=== PATIENT | female | born 1960 | race Caucasian/White ===

== ENCOUNTER 2017-01-11 10:17 | Outpatient (CLI) ==
[2016-05-03 09:12] VITALS: BMI 37.8
[2017-01-11 10:33] LABS: BASOPHILS # (AUTO) 0.1 K/uL (0-0.2); EOSINOPHILS # (AUTO) 0.2 K/ul (0.0-0.7); EOSINOPHILS % (AUTO) 2.7 % (0.0-7.0); HEMATOCRIT 45.5 % (37.0-47.0); HEMOGLOBIN 15.2 g/dl (12.0-16.0); IMMATURE GRANULOCYTE % (AUTO) 0.4 % (0.0-5.0); LYMPHOCYTES # (AUTO) 3.2 K/uL (0.60-3.4); LYMPHOCYTES % (AUTO) 36.1 (10.0-50.0); MEAN CORPUSCULAR HEMOGLOBIN 31.1 pg (27.0-31.0); MEAN CORPUSCULAR HGB CONC 33.4 (31.8-35.4); MONOCYTES # (AUTO) 0.7 K/uL (0.4-2.0); MONOCYTES % (AUTO) 7.9 (0-10); NEUTROPHILS # (AUTO) 4.6 K/ul (2.0-6.9); NEUTROPHILS % (AUTO) 51.9; PLATELET COUNT 412 10^3/uL (140-440); RED BLOOD COUNT 4.89 10^6/ul (4.20-5.40); WHITE BLOOD COUNT 8.94 K/ul (4.6-10.2)
[2017-01-11 10:58] LABS: ALBUMIN 3.6 g/dL (3.4-5.0); ALBUMIN/GLOBULIN RATIO 0.82; ANION GAP 13.8; BILIRUBIN,TOTAL 0.4 mg/dL (0.00-1.20); BUN/CREATININE RATIO 16.66; CALCIUM 9.9 mg/dL (8.2-10.2); CHOL/HDL RATIO 6.3 (4.5-5.5); CREATININE 0.9 mg/dL (0.60-1.30); POTASSIUM 3.8 mmol/L (3.5-5.10)
== END 2017-01-11 10:18 | disposition home or self-care (01) ==
LOC: LAB 10:17
PROVIDERS: ATTEND Physician Assistant
DX: E11.9 Type 2 diabetes mellitus without complications (principal)
CPT/HCPCS: 36415; 80053; 80061; 83036; 85025

== ENCOUNTER 2017-02-06 13:00 | Outpatient (RCR) ==
[2016-05-03 09:12] VITALS: BMI 37.8
--- NOTE | 2017-01-15 09:31 | RS.OPPTEV2 ---
Date of Note: 01/11/17 Visit #: 1 Date of Evaluation: 01/11/17 Surgery Performed?: No Procedure Performed: Right Total Knee Replacement Date of Procedure: 12/20/16 Treatment Diagnosis: Right knee pain, Right knee stiffness, gait abnormality History of Condition/Mechanism of Injury:: Patient reports previous surgery to the right knee to repair meniscus and tighten the MCL. Reports continued joint pain and arthritis led to a TKA. Prior Level of Function.....Patient was independent with: ADL's, Self Care, Work /Vocation, Caregiving, Ambulation/Mobility, Community Integration/Access Functional Limitations: Sleep, Self Care, ADL's, Reaching, Pushing, Pulling, Lifting, Carrying, Sitting, Standing, Bending, Squatting, Ambulation, Community Access/Integration Current Subjective/complaints:: Patient reports constant dull, achy pain in the right knee. States she has been using a cane for several days. Reports she just finished receiving therapy for Home Health earlier this week. Reports having 85 degrees flexion on last measurement with the Home Health Therapist. States she is performing her HEP three times a day. She is sleeping in a recliner, but trying to transition back to bed. Reports having a few steps to get into her home, no stairs inside the home. Reports tenderness along the lower leg. She is using ice on the knee at home. States she alternates Advil with her pain medication. Treatment Side (optional): Right Medical History Medical History: Diabetes, Arthritis (knees) Smoking Status: Former smoker Hx Home Medications: Metformin,hydrocodone,Flexeril Patient's Goals: Her goal is to return to her previous level of function. Pain Assessment - Pain Description Pain Location: right knee Pain Description: Dull, Aching Current Pain Intensity: 2/10 Worst Pain Intensity: not rated Functional Outcome Measure LE Functional Scale: 23 (23/80=71.25% impairment) - G Codes & Severity Modifier G Codes & Modifier: NA Source of G Code score: NA Observation - Observation Inspection: Patient presents to department with a straight cane. Right knee presents with a few steri-strips in place over the incision. Incision is closed and no drainage is noted. Demonstrates scabbed areas throughout the incision. Knee joint exhibits swelling, lower leg at ankle and foot exhibit minimal swelling. No redness noted. Gait - Gait Pattern Gait Comments: Patient ambulates with straight cane in the left hand with decreased stance on the right LE. Demonstrates good heel strike. Exhibits minimal right hip and knee flexion on during swing phase. - Right Knee ROM Right Knee Extension: -3 degrees from full extension Right Knee Flexion: 80 (degrees AROM) Knee ROM Limitations: Soft Tissue Tightness, Pain - Right Knee Strength Right Knee Extension: 4 Good Right Knee Flexion: 4 Good Palpation Comments:: Patient reports tenderness with palpation to the anterior aspect of the franco, just above the ankle. Sensation - Sensation Comments: Intact to light touch other than at the lateral side of the incision. Interventions - Exercise/Activities/Manual Therapy Exercises/Activities: Reviewed exercises that patient is performing from Home Health. Recommended she try standing knee flexion, and advised to continue icing the knee. Manual Therapy: NA HOME EXERCISE PROGRAM: basic TKA protocol from Home Health, standing knee flexion - Charges Total Direct Minutes: 48 mins Total Treatment Time: 48 mins Procedures billed for this date of service:: OLIVER Low Assessment Assessment: Patient presents three weeks s/p right TKA. She reports knee pain and limited motion. She is limited in all self care, ADL's, and ambulation due to proximity of surgery and limtations. She demonstrates good potential to benefit from exercises to regain functional right knee AROM and strength to help her return to her previous level of function. Patient Education: Education of diagnosis, Body/Joint mechanics, Home Exercise Program, Home Safety, Activity Modification, Education of Plan of Care Rehab Potential: Good Short Term Goals Goal #1: Patient independent in basic HEP. Goal to be met by: 01/26/17 Goal #2: Right knee flexion to 105 degrees. Goal to be met by: 01/26/17 Goal #3: Full right knee extension. Goal to be met by: 01/26/17 Goal #4: Right quad strength 4+/5. Goal to be met by: 01/26/17 Family Practice Doctor Goals Goal #1: Pt knows HEP and to cont. ex's to maintain functional level at D/C. Goal to be met by: 03/03/17 Goal #2: Score on LE functional scale improved to 60/80. Goal to be met by: 03/03/17 Goal #3: Pt able to amb. w/o assist. device community distances with min. gait dev. Goal to be met by: 03/03/17 Goal #4: Pt able to perform all selfcare and ADL's without difficulty. Goal to be met by: 03/03/17 Plan - Treatment to be Provided Procedures: Therapeutic Exercises, Therapeutic Activity, Manual Therapy Modalities: Electrical Stimulation, Cryotherapy, Hot Packs (prior to exercise if indicated) - Treatment Plan Frequency: 3 X week Duration: 6 weeks ORDER # VISITS AND/OR THROUGH DATE: 03/03/17 - Treatment Code (1) Knee pain Qualifiers: Laterality: right Chronicity: acute Qualified Description: Acute pain of right knee Qualifier Code(s): (M25.561) Pain in right knee (2) Knee stiffness Qualifiers: Laterality: right Qualified Description: Knee stiffness, right Qualifier Code(s): (M25.661) Stiffness of right knee, not elsewhere classified (3) Aftercare following joint replacement surgery Qualifiers: Joint replacement surgery site: knee Laterality: right Qualified Description: Aftercare following right knee joint replacement surgery Qualifier Code(s): (Z47.1) Aftercare following joint replacement surgery, ( Z96.651) Presence of right artificial knee joint
--- NOTE | 2017-01-15 14:44 | RS.OPPTDN ---
Subjective Date of Note: 01/15/17 Visit #: 2 Date of Evaluation: 01/11/17 Treatment Diagnosis: Right knee pain, Right knee stiffness, gait abnormality Current Subjective/complaints:: Patient reports she was able to sleep in her bed for the first time yesterday and drove today to therapy. She was not able to take a pain pill though, so she was anxious about therapy. C/c stiffness this morning. Pain Assessment - Pain Description Pain Location: right knee Pain Description: Dull, Aching Pain Description: stiff Current Pain Intensity: did not rate - Treatment Modality: Electrical Stim Unattended Parameters/Method Applied: hivolt 4 small pads cross current R knee x 15 mins @ 140 pk volts AFTER therex Patient Position: Supine - Heat/Cryotherapy Treatment: Cryotherapy Interventions - Exercise/Activities/Manual Therapy Exercises/Activities: Patient received PROM with gentle stretching for R knee flex/ext and hamstring/heel cords. Patellar mobs. Patient performs: QS, SAQ 1 #, SLR (AAROM), Hip ABD/ADD (AAROM), heel slides, AP, DF with red tband, Pillow squeezes, all 2/10 (2nd set of SAQ no weight). LAQ. Ended with further ROM and reviewed HEP. Encouraged HEP and ice. Total minutes of Exercise: 32 Manual Therapy: NA HOME EXERCISE PROGRAM: basic TKA protocol from Home Health, standing knee flexion - Charges Total Direct Minutes: 32 Total Treatment Time: 47 Procedures billed for this date of service:: cp, estim (un), ex2 Assessment: Patient presents without pain meds due to driving today. She ambulates with SC. She is able to now return to sleeping in her bed instead of recliner/couch. She is consistent with performing HEP and demo 90 degrees flexion with 3-4 degrees limitation in extension. Patient Education: Education of diagnosis, Body/Joint mechanics, Home Exercise Program, Home Safety, Activity Modification, Education of Plan of Care Patient demonstrates compliance with HEP?: Yes Short Term Goals Goal #1: Patient independent in basic HEP. Goal to be met by: 01/26/17 Progress towards Goal:: Progressing Goal #2: Right knee flexion to 105 degrees. Goal to be met by: 01/26/17 Progress towards Goal:: Progressing Goal #3: Full right knee extension. Goal to be met by: 01/26/17 Goal #4: Right quad strength 4+/5. Goal to be met by: 01/26/17 Penitentiary Goals Goal #1: Pt knows HEP and to cont. ex's to maintain functional level at D/C. Goal to be met by: 03/03/17 Goal #2: Score on LE functional scale improved to 60/80. Goal to be met by: 03/03/17 Goal #3: Pt able to amb. w/o assist. device community distances with min. gait dev. Goal to be met by: 03/03/17 Goal #4: Pt able to perform all selfcare and ADL's without difficulty. Goal to be met by: 03/03/17 Plan PLAN OF CARE EXPIRES ON:: 03/03/17 ORDER # VISITS AND/OR THROUGH DATE: 03/03/17 PLAN: Progress Exercises
--- NOTE | 2017-01-17 15:51 | RS.OPPTDN ---
Subjective Date of Note: 01/17/17 Visit #: 3 Date of Evaluation: 01/11/17 Treatment Diagnosis: Right knee pain, Right knee stiffness, gait abnormality Current Subjective/complaints:: Patient says she felt better after Sunday's session, but was sore yesterday to the inside of the R knee. Patient says she did take a pain pill an hour before PT appt. Patient says she feels more motion after last session. Pain Assessment - Pain Description Pain Location: right knee Pain Description: Dull, Aching Pain Description: stiff Current Pain Intensity: did not rate - Treatment Modality: Electrical Stim Unattended Parameters/Method Applied: 4 large pads hivolt x 15 mins @ 195 pk volts to R knee AFTER therex Patient Position: Supine - Heat/Cryotherapy Treatment: Cryotherapy Interventions - Exercise/Activities/Manual Therapy Exercises/Activities: Patient received PROM with gentle stretching for R knee flex/ext and hamstring/heel cords. Patellar mobs. Patient performs: QS, SAQ ( no weight today), SLR (AAROM), Hip ABD/ADD (AAROM), heel slides, AP, DF with red tband, Pillow squeezes, all 2/10 (2nd set of SAQ no weight). LAQ. Standing : ham curls. Ended with further ROM and reviewed HEP. Encouraged HEP and ice. Total minutes of Exercise: 33 Manual Therapy: NA HOME EXERCISE PROGRAM: basic TKA protocol from Home Health, standing knee flexion - Charges Total Direct Minutes: 33 Total Treatment Time: 48 Procedures billed for this date of service:: cp, estim (un), ex2 Assessment: Patient with increased soreness today and shaky with most passive motion and some activities actively. She had taken pain meds prior to PT and did show improved knee flexion by ~2-3 degrees from Sunday. She verbally admitted decreased pain and improved ambulation after modalities today. Patient Education: Education of diagnosis, Body/Joint mechanics, Home Exercise Program, Home Safety, Activity Modification, Education of Plan of Care Patient demonstrates compliance with HEP?: Yes Short Term Goals Goal #1: Patient independent in basic HEP. Goal to be met by: 01/26/17 Progress towards Goal:: Progressing Goal #2: Right knee flexion to 105 degrees. Goal to be met by: 01/26/17 Progress towards Goal:: Progressing Goal #3: Full right knee extension. Goal to be met by: 01/26/17 Goal #4: Right quad strength 4+/5. Goal to be met by: 01/26/17 [employer] Tender Goals Goal #1: Pt knows HEP and to cont. ex's to maintain functional level at D/C. Goal to be met by: 03/03/17 Goal #2: Score on LE functional scale improved to 60/80. Goal to be met by: 03/03/17 Goal #3: Pt able to amb. w/o assist. device community distances with min. gait dev. Goal to be met by: 03/03/17 Goal #4: Pt able to perform all selfcare and ADL's without difficulty. Goal to be met by: 03/03/17 Plan PLAN OF CARE EXPIRES ON:: 03/03/17 ORDER # VISITS AND/OR THROUGH DATE: 03/03/17 PLAN: Progress Exercises
--- NOTE | 2017-01-19 15:26 | RS.OPPTDN ---
Subjective Date of Note: 01/19/17 Visit #: 4 Date of Evaluation: 01/11/17 Treatment Diagnosis: Right knee pain, Right knee stiffness, gait abnormality Current Subjective/complaints:: Patient says she feels treatment is helping her gain motion, but is very sore today. She believes it is weather involved plus exercises in PT. She says she now has sensation at the lateral portion of the R knee in which she has not had feeling since surgery. She has had pain meds prior to appt today and states she has now been able to sleep 4 nights in a row in her bed. Pain Assessment - Pain Description Pain Location: right knee Pain Description: Dull, Aching Pain Description: stiff Current Pain Intensity: elevated - Heat/Cryotherapy Treatment: Hot Pack (20 mins to the R knee in supine prior to therex) Interventions - Exercise/Activities/Manual Therapy Exercises/Activities: Patient received PROM with gentle stretching for R knee flex/ext and hamstring/heel cords. Patellar mobs. Patient performs: QS, SAQ ( no weight today), SLR (AAROM), Hip ABD/ADD (AAROM), heel slides, AP, DF with red tband, Pillow squeezes, all 2/10 (2nd set of SAQ no weight). LAQ. Standing : ham curls. Total minutes of Exercise: 35 Manual Therapy: NA HOME EXERCISE PROGRAM: basic TKA protocol from Home Health, standing knee flexion - Objective Findings Observations,measurements,etc.: 0 (with QS) to 86 degrees active, 93 degrees passive (AFTER therex in supine) - Charges Total Direct Minutes: 35 Total Treatment Time: 55 Procedures billed for this date of service:: hp, ex2 Assessment: Increased knee flexion today with heat prior. Decreased swelling to the lateral R knee with improved sensation as well. Patient Education: Education of diagnosis, Body/Joint mechanics, Home Exercise Program, Home Safety, Activity Modification, Education of Plan of Care Patient demonstrates compliance with HEP?: Yes Short Term Goals Goal #1: Patient independent in basic HEP. Goal to be met by: 01/26/17 Progress towards Goal:: Progressing Goal #2: Right knee flexion to 105 degrees. Goal to be met by: 01/26/17 Progress towards Goal:: Progressing Goal #3: Full right knee extension. Goal to be met by: 01/26/17 Progress towards Goal:: Progressing Goal #4: Right quad strength 4+/5. Goal to be met by: 01/26/17 Equipment Maintenance Technician Goals Goal #1: Pt knows HEP and to cont. ex's to maintain functional level at D/C. Goal to be met by: 03/03/17 Goal #2: Score on LE functional scale improved to 60/80. Goal to be met by: 03/03/17 Goal #3: Pt able to amb. w/o assist. device community distances with min. gait dev. Goal to be met by: 03/03/17 Goal #4: Pt able to perform all selfcare and ADL's without difficulty. Goal to be met by: 03/03/17 Plan PLAN OF CARE EXPIRES ON:: 03/03/17 ORDER # VISITS AND/OR THROUGH DATE: 03/03/17 PLAN: Progress Exercises
--- NOTE | 2017-01-22 15:06 | RS.OPPTDN ---
Subjective Date of Note: 01/22/17 Visit #: 5 Date of Evaluation: 01/11/17 Treatment Diagnosis: Right knee pain, Right knee stiffness, gait abnormality Current Subjective/complaints:: Patient says she hasn't felt good all weekend. Reports feeling increased pain to her knee, but also pain throughout her body and increased sensitivity in arms and legs. She says she feels ice worked better for her and has been using ice at home a lot. Pain Assessment - Pain Description Pain Location: right knee, generally throughout body Pain Description: Dull, Aching Pain Description: stiff Current Pain Intensity: elevated Interventions - Exercise/Activities/Manual Therapy Exercises/Activities: Patient received PROM with gentle stretching for R knee flex/ext and hamstring/heel cords. Patellar mobs. Patient performs: QS, SAQ ( no weight today), SLR (AAROM), Hip ABD/ADD (AAROM), heel slides, AP, DF with red tband, Pillow squeezes, all 2/10. Ended with LAQ and further stretching and patellar mobs. Total minutes of Exercise: 38 Manual Therapy: NA HOME EXERCISE PROGRAM: basic TKA protocol from [facility], standing knee flexion - Charges Total Direct Minutes: 38 Total Treatment Time: 38 Procedures billed for this date of service:: ex3 Assessment: Patient has felt generally bad for the past few days. No sign of infection or blood clot observed today. She kelsea flex to ~94 degrees today and 0 ext. She is quite shaky laying down and sitting with conversation. Patient Education: Education of diagnosis, Body/Joint mechanics, Home Exercise Program, Home Safety, Activity Modification, Education of Plan of Care Patient demonstrates compliance with HEP?: Yes Short Term Goals Goal #1: Patient independent in basic HEP. Goal to be met by: 01/26/17 Progress towards Goal:: Progressing Goal #2: Right knee flexion to 105 degrees. Goal to be met by: 01/26/17 Progress towards Goal:: Progressing Goal #3: Full right knee extension. Goal to be met by: 01/26/17 Progress towards Goal:: Progressing Goal #4: Right quad strength 4+/5. Goal to be met by: 01/26/17 Shelter Goals Goal #1: Pt knows HEP and to cont. ex's to maintain functional level at D/C. Goal to be met by: 03/03/17 Goal #2: Score on LE functional scale improved to 60/80. Goal to be met by: 03/03/17 Goal #3: Pt able to amb. w/o assist. device community distances with min. gait dev. Goal to be met by: 03/03/17 Goal #4: Pt able to perform all selfcare and ADL's without difficulty. Goal to be met by: 03/03/17 Plan PLAN OF CARE EXPIRES ON:: 03/03/17 ORDER # VISITS AND/OR THROUGH DATE: 03/03/17 PLAN: Progress Exercises
--- NOTE | 2017-01-24 15:44 | RS.OPPTDN ---
Subjective Date of Note: 01/24/17 Visit #: 6 Date of Evaluation: 01/11/17 Treatment Diagnosis: Right knee pain, Right knee stiffness, gait abnormality Current Subjective/complaints:: Patient says she did not take a pain pill today and feels like her knee is getting more flexible. She says that she wanted to take a pain pill, but was trying to rely on them less. Pain Assessment - Pain Description Pain Location: right knee, generally throughout body Pain Description: Dull, Aching Pain Description: stiff Current Pain Intensity: elevated Interventions - Exercise/Activities/Manual Therapy Exercises/Activities: Patient received PROM with stretching for R knee flex/ext and hamstring/heel cords. Patellar mobs. Grades I-III joint mobs for improved flexion. Patient performs: QS, SAQ, SLR (Independently), Hip ABD/ADD (AAROM), heel slides, AP, DF with red tband, Pillow squeezes, all 2/10. Ended with LAQ with 1# and further stretching into flexion at EOB. Standing: hip flexion and ham curls. Initiated stationary bike x 5 mins for/retro (able to perform full revolutions backwards). Total minutes of Exercise: 38 Manual Therapy: NA HOME EXERCISE PROGRAM: basic TKA protocol from Home Health, standing knee flexion - Charges Total Direct Minutes: 38 Total Treatment Time: 38 Procedures billed for this date of service:: ex3 Assessment: Patient has demo improved flexibility with joint mobs today and shows increased flexion. She is trying to wean from her pain meds, but told her to use if needed and continue to ice. She is walking independently at home. Improved kelsea to all therex today. Patient Education: Education of diagnosis, Body/Joint mechanics, Home Exercise Program, Home Safety, Activity Modification, Education of Plan of Care Patient demonstrates compliance with HEP?: Yes Short Term Goals Goal #1: Patient independent in basic HEP. Goal to be met by: 01/26/17 Progress towards Goal:: Progressing Goal #2: Right knee flexion to 105 degrees. Goal to be met by: 01/26/17 Progress towards Goal:: Progressing Goal #3: Full right knee extension. Goal to be met by: 01/26/17 Progress towards Goal:: Progressing Goal #4: Right quad strength 4+/5. Goal to be met by: 01/26/17 Metal Furniture Glazier Goals Goal #1: Pt knows HEP and to cont. ex's to maintain functional level at D/C. Goal to be met by: 03/03/17 Goal #2: Score on LE functional scale improved to 60/80. Goal to be met by: 03/03/17 Goal #3: Pt able to amb. w/o assist. device community distances with min. gait dev. Goal to be met by: 03/03/17 Goal #4: Pt able to perform all selfcare and ADL's without difficulty. Goal to be met by: 03/03/17 Plan PLAN OF CARE EXPIRES ON:: 03/03/17 ORDER # VISITS AND/OR THROUGH DATE: 03/03/17 PLAN: Progress Exercises
--- NOTE | 2017-01-26 12:08 | RS.OPPTDN ---
Subjective Date of Note: 01/26/17 Visit #: 7 Date of Evaluation: 01/11/17 Treatment Diagnosis: Right knee pain, Right knee stiffness, gait abnormality Current Subjective/complaints:: Patient c/o increased ache/tightness today. She says she feels awful all over. Reports she has been icing even more due to the pain. She is relying on her cane less often and says she doesn't feel like she needs it anymore, but she is going to keep it when away from home. Pain Assessment - Pain Description Pain Location: right knee, generally throughout body Pain Description: Tightness, Dull, Aching Pain Description: stiff Current Pain Intensity: elevated Interventions - Exercise/Activities/Manual Therapy Exercises/Activities: Patient received PROM with stretching for R knee flex/ext and hamstring/heel cords. Patellar mobs. Grades I-III joint mobs for improved flexion. Patient performs: QS, SAQ 1 1/2#, SLR (Independently), Hip ABD/ADD ( AAROM), heel slides, AP, DF with red tband, Pillow squeezes, all /10. Ended with LAQ with 1# and further stretching into flexion at EOB. Measurements taken. Continued with stationary bike for/retro full revolutions x 6 mins Total minutes of Exercise: 43 Manual Therapy: NA HOME EXERCISE PROGRAM: basic TKA protocol from Home Health, standing knee flexion - Objective Findings Observations,measurements,etc.: Flexion with hip @ 90 degrees actively to 99 degrees - Charges Total Direct Minutes: 43 Total Treatment Time: 43 Procedures billed for this date of service:: ex3 Assessment: Patient experiencing more ache and tightness today for unknown reasons. She is hurting throughout the body and feels it is weather related. She has soreness with QS, joint mobs, and heel slides today. The exercises that usually reduce pain, are causing discomfort today. She was, however, able to perform full revolutions for and retro today. Improved flexion by ~3 degrees. Patient Education: Education of diagnosis, Body/Joint mechanics, Home Exercise Program, Home Safety, Activity Modification, Education of Plan of Care Patient demonstrates compliance with HEP?: Yes Short Term Goals Goal #1: Patient independent in basic HEP. Goal to be met by: 01/26/17 Progress towards Goal:: Progressing Goal #2: Right knee flexion to 105 degrees. Goal to be met by: 01/26/17 Progress towards Goal:: Progressing Goal #3: Full right knee extension. Goal to be met by: 01/26/17 Progress towards Goal:: Progressing Goal #4: Right quad strength 4+/5. Goal to be met by: 01/26/17 Jail Goals Goal #1: Pt knows HEP and to cont. ex's to maintain functional level at D/C. Goal to be met by: 03/03/17 Goal #2: Score on LE functional scale improved to 60/80. Goal to be met by: 03/03/17 Goal #3: Pt able to amb. w/o assist. device community distances with min. gait dev. Goal to be met by: 03/03/17 Goal #4: Pt able to perform all selfcare and ADL's without difficulty. Goal to be met by: 03/03/17 Plan PLAN OF CARE EXPIRES ON:: 03/03/17 ORDER # VISITS AND/OR THROUGH DATE: 03/03/17 PLAN: Progress Exercises
--- NOTE | 2017-01-29 15:07 | RS.OPPTDN ---
Subjective Date of Note: 01/29/17 Visit #: 8 Date of Evaluation: 01/11/17 Treatment Diagnosis: Right knee pain, Right knee stiffness, gait abnormality Current Subjective/complaints:: Patient states she has an appt with her MD today. She says that her knee feels stiff and tight today. She c/o lower lateral leg numbness that extends to just above the lateral malleoli. Pain Assessment - Pain Description Pain Location: right knee, generally throughout body Pain Description: Tightness, Dull, Aching Pain Description: stiff Current Pain Intensity: elevated Interventions - Exercise/Activities/Manual Therapy Exercises/Activities: Patient received PROM with stretching for R knee flex/ext and hamstring/heel cords. Patellar mobs. Grades I-III joint mobs for improved flexion. Patient performs: QS, SAQ 1 1/2#, SLR (Independently), Hip ABD/ADD ( Independently), heel slides, AP, DF with red tband, Pillow squeezes, all 2/10. Ended with LAQ with 1 1/2# and further stretching into flexion at EOB. Contract/ relax for R knee mobility. Measurements taken. Continued with stationary bike for/retro full revolutions x 6 mins Total minutes of Exercise: 38 Manual Therapy: NA HOME EXERCISE PROGRAM: basic TKA protocol from Home Health, standing knee flexion - Charges Total Direct Minutes: 38 Total Treatment Time: 38 Procedures billed for this date of service:: ex3 Assessment: 0-103 flexion after multiple contract/relax and joint mobs. Patient progressing well with all therex. Ambulating in the department without cane demo near equal WB. Patient Education: Education of diagnosis, Body/Joint mechanics, Home Exercise Program, Home Safety, Activity Modification, Education of Plan of Care Patient demonstrates compliance with HEP?: Yes Short Term Goals Goal #1: Patient independent in basic HEP. Goal to be met by: 01/26/17 Progress towards Goal:: Progressing Goal #2: Right knee flexion to 105 degrees. Goal to be met by: 01/26/17 Progress towards Goal:: Progressing Goal #3: Full right knee extension. Goal to be met by: 01/26/17 Progress towards Goal:: Progressing Goal #4: Right quad strength 4+/5. Goal to be met by: 01/26/17 Mechanical Insulator Goals Goal #1: Pt knows HEP and to cont. ex's to maintain functional level at D/C. Goal to be met by: 03/03/17 Goal #2: Score on LE functional scale improved to 60/80. Goal to be met by: 03/03/17 Goal #3: Pt able to amb. w/o assist. device community distances with min. gait dev. Goal to be met by: 03/03/17 Goal #4: Pt able to perform all selfcare and ADL's without difficulty. Goal to be met by: 03/03/17 Plan PLAN OF CARE EXPIRES ON:: 03/03/17 ORDER # VISITS AND/OR THROUGH DATE: 03/03/17 PLAN: Progress Exercises
--- NOTE | 2017-01-31 13:13 | RS.OPPTDN ---
Subjective Date of Note: 01/31/17 Visit #: 9 Date of Evaluation: 01/11/17 Treatment Diagnosis: Right knee pain, Right knee stiffness, gait abnormality Current Subjective/complaints:: Patient states she just had her follow up with ortho. She says she was released to go back to work and she does not have to return until 3 months for ortho. She says she has concerns about returning to work presently, but feels after another week or two of therapy, she will be much better. She says she has the ability to work short hours and to sit or walk around while at work. Pain Assessment - Pain Description Pain Location: right knee, generally throughout body Pain Description: Tightness, Dull, Aching Pain Description: stiff Current Pain Intensity: elevated Interventions - Exercise/Activities/Manual Therapy Exercises/Activities: Patient received PROM with stretching for R knee flex/ext and hamstring/heel cords. Patellar mobs. Grades I-III joint mobs for improved flexion. Patient performs: QS, SAQ 1 1/2#, SLR (Independently), Hip ABD/ADD ( Independently), heel slides, DF with red tband, ball squeezes, all 2/10. Ended with LAQ with 1 1/2# and further stretching into flexion at EOB. Continued with stationary bike for/retro full revolutions x 6 mins Total minutes of Exercise: 38 Manual Therapy: NA HOME EXERCISE PROGRAM: basic TKA protocol from Home Health, standing knee flexion - Charges Total Direct Minutes: 38 Total Treatment Time: 38 Procedures billed for this date of service:: ex3 Assessment: Patient demo knee flexion to ~106 today Actively in supine 90/90 position. She is walking without the cane with near equal WB bilaterally in our department. She carries it only with community distances. Patient Education: Education of diagnosis, Body/Joint mechanics, Home Exercise Program, Home Safety, Activity Modification, Education of Plan of Care Patient demonstrates compliance with HEP?: Yes Short Term Goals Goal #1: Patient independent in basic HEP. Goal to be met by: 01/26/17 Progress towards Goal:: Progressing Goal #2: Right knee flexion to 105 degrees. Goal to be met by: 01/26/17 Progress towards Goal:: Partially Met Goal #3: Full right knee extension. Goal to be met by: 01/26/17 Progress towards Goal:: Partially Met Comments:: with active QS Goal #4: Right quad strength 4+/5. Goal to be met by: 01/26/17 Progress towards Goal:: Progressing Senior Care Goals Goal #1: Pt knows HEP and to cont. ex's to maintain functional level at D/C. Goal to be met by: 03/03/17 Goal #2: Score on LE functional scale improved to 60/80. Goal to be met by: 03/03/17 Goal #3: Pt able to amb. w/o assist. device community distances with min. gait dev. Goal to be met by: 03/03/17 Goal #4: Pt able to perform all selfcare and ADL's without difficulty. Goal to be met by: 03/03/17 Plan PLAN OF CARE EXPIRES ON:: 03/03/17 ORDER # VISITS AND/OR THROUGH DATE: 03/03/17 PLAN: Progress Exercises
--- NOTE | 2017-02-02 16:02 | RS.OPPTDN ---
Subjective Date of Note: 02/02/17 Visit #: 10 Date of Evaluation: 01/11/17 Treatment Diagnosis: Right knee pain, Right knee stiffness, gait abnormality Current Subjective/complaints:: Patient says she is hurting more today, but overall is pleased with how well she is doing. She says she is walking now without her cane. Pain Assessment - Pain Description Pain Location: right knee, generally throughout body Pain Description: Tightness, Dull, Aching Pain Description: stiff Current Pain Intensity: elevated Interventions - Exercise/Activities/Manual Therapy Exercises/Activities: Patient received PROM with stretching for R knee flex/ext and hamstring/heel cords. Patellar mobs. Grades I-III joint mobs for improved flexion. Patient performs: QS, SAQ increased to 2#, SLR (Independently), Hip ABD/ADD (Independently), heel slides, DF with red tband, ball squeezes, all / 10. Ended with LAQ with 2# and further stretching into flexion at EOB. Continued with stationary bike for/retro full revolutions x 6 mins. Measurements taken 106 degrees active, 109 passive today Total minutes of Exercise: 45 Manual Therapy: NA HOME EXERCISE PROGRAM: basic TKA protocol from [facility], standing knee flexion - Charges Total Direct Minutes: 45 Total Treatment Time: 45 Procedures billed for this date of service:: ex3 Assessment: Patient amb independently steadily with equal WB bilaterally. She has had increased pain today describing ache, but was better with activity today. Improved ROM when compared to earlier in the week (by 4 degrees) Patient Education: Education of diagnosis, Body/Joint mechanics, Home Exercise Program, Home Safety, Activity Modification, Education of Plan of Care Patient demonstrates compliance with HEP?: Yes Short Term Goals Goal #1: Patient independent in basic HEP. Goal to be met by: 01/26/17 Progress towards Goal:: Progressing Goal #2: Right knee flexion to 105 degrees. Goal to be met by: 01/26/17 Progress towards Goal:: Partially Met Goal #3: Full right knee extension. Goal to be met by: 01/26/17 Progress towards Goal:: Partially Met Goal #4: Right quad strength 4+/5. Goal to be met by: 01/26/17 Progress towards Goal:: Progressing Intermediate Goals Goal #1: Pt knows HEP and to cont. ex's to maintain functional level at D/C. Goal to be met by: 03/03/17 Goal #2: Score on LE functional scale improved to 60/80. Goal to be met by: 03/03/17 Goal #3: Pt able to amb. w/o assist. device community distances with min. gait dev. Goal to be met by: 03/03/17 Goal #4: Pt able to perform all selfcare and ADL's without difficulty. Goal to be met by: 03/03/17 Plan PLAN OF CARE EXPIRES ON:: 03/03/17 ORDER # VISITS AND/OR THROUGH DATE: 03/03/17 PLAN: Progress Exercises
--- NOTE | 2017-02-06 15:46 | RS.OPPTDN ---
Subjective Date of Note: 02/06/17 Visit #: 11 Date of Evaluation: 01/11/17 Treatment Diagnosis: Right knee pain, Right knee stiffness, gait abnormality Current Subjective/complaints:: Patient says she walked around a lot at her brother's home over the weekend. She says he lives in [place] and they had a 2+hour drive. She said she did have swelling to the R knee extending to the foot, however, she did use ice consistently to decrease and prevent it on the drive. Pain Assessment - Pain Description Pain Location: right knee, generally throughout body Pain Description: Tightness, Dull, Aching Pain Description: swelling Current Pain Intensity: elevated - Treatment Modality: Electrical Stim Unattended Parameters/Method Applied: hivolt @ 175-205 pk volts x 20 mins to the R knee after therex Patient Position: Supine - Heat/Cryotherapy Treatment: Cryotherapy Interventions - Exercise/Activities/Manual Therapy Exercises/Activities: Patient received PROM with stretching for R knee flex/ext and hamstring/heel cords. Patellar mobs. Grades I-III joint mobs for improved flexion. Patient performs: QS, SAQ increased to 2 1/2#, SLR (Independently), Hip ABD/ADD (Independently), hooklying hip abd with green tband, heel slides, DF with red tband, ball squeezes, all 2/10. Ended with LAQ with 2 1/2# and further stretching into flexion at EOB. Ham curls with green tband 2/10. Continued with stationary bike for/retro full revolutions x 6 mins Total minutes of Exercise: 38 Manual Therapy: NA HOME EXERCISE PROGRAM: basic TKA protocol from Home Health, standing knee flexion - Charges Total Direct Minutes: 38 Total Treatment Time: 53 Procedures billed for this date of service:: cp, estim (un), ex3 Assessment: Patient with increased swelling and pain today related to drive to [place] and walking. She did not get a chance to perform HEP, but did walk a lot. Swelling and pain decreased with estim today. She did not kelsea much stretching for flexion. Patient Education: Education of diagnosis, Body/Joint mechanics, Home Exercise Program, Home Safety, Activity Modification, Education of Plan of Care Patient demonstrates compliance with HEP?: Yes Short Term Goals Goal #1: Patient independent in basic HEP. Goal to be met by: 01/26/17 Progress towards Goal:: Progressing Goal #2: Right knee flexion to 105 degrees. Goal to be met by: 01/26/17 Progress towards Goal:: Partially Met Goal #3: Full right knee extension. Goal to be met by: 01/26/17 Progress towards Goal:: Partially Met Goal #4: Right quad strength 4+/5. Goal to be met by: 01/26/17 Progress towards Goal:: Progressing Shelter Goals Goal #1: Pt knows HEP and to cont. ex's to maintain functional level at D/C. Goal to be met by: 03/03/17 Goal #2: Score on LE functional scale improved to 60/80. Goal to be met by: 03/03/17 Goal #3: Pt able to amb. w/o assist. device community distances with min. gait dev. Goal to be met by: 03/03/17 Goal #4: Pt able to perform all selfcare and ADL's without difficulty. Goal to be met by: 03/03/17 Plan PLAN OF CARE EXPIRES ON:: 03/03/17 ORDER # VISITS AND/OR THROUGH DATE: 03/03/17 PLAN: Progress Exercises
== END 2017-02-07 ==
PROVIDERS: ATTEND Orthopaedic Surgery
DX: Z96.651 Presence of right artificial knee joint (principal); E11.9 Type 2 diabetes mellitus without complications
CPT/HCPCS: 36415; 80053; 80061; 83036; 85025

== ENCOUNTER 2017-02-08 13:11 | Outpatient (RCR) ==
[2016-05-03 09:12] VITALS: BMI 37.8
--- NOTE | 2017-02-08 15:30 | RS.OPPTDN ---
Subjective Date of Note: 02/08/17 Visit #: 11 Date of Evaluation: 01/11/17 Treatment Diagnosis: Right knee pain, Right knee stiffness, gait abnormality Current Subjective/complaints:: Patient c/o increased R knee pain. She says that she has hurt about as bad as after her knee surgery. She says she went grocery shopping at [employer] yesterday and pushed the full cart. She says her calf has been twitching and has had spasms. Pain Assessment - Pain Description Pain Location: right knee, generally throughout body Pain Description: swelling Current Pain Intensity: elevated - Treatment Modality: Electrical Stim Unattended Parameters/Method Applied: hivolt 4 large pads @ 130 pk volts uncrossed to the R knee after therex Patient Position: Supine - Heat/Cryotherapy Treatment: Cryotherapy Interventions - Exercise/Activities/Manual Therapy Exercises/Activities: Zuleika c/o increased pain with most all therex. She began with stationary bike x 6 mins for/retro. Pain indicated at the distal patella and down the tibia. Patient received more gentler stretching, QS, SAQ, DF attempted with green tband and caused increased pain, hip abd, SLR, pillow squeezes, heel slides x 10. Total minutes of Exercise: 22 Manual Therapy: NA HOME EXERCISE PROGRAM: basic TKA protocol from Home Health, standing knee flexion - Charges Total Direct Minutes: 22 Total Treatment Time: 42 Procedures billed for this date of service:: cp, estim (Un), ex Assessment: Patient had difficulty kelsea most all activity today. She c/o muscle tightness and spasms to the calf. Increased tenderness along the entire incision today as well. More conservative treatment today due to c/o's. Patient Education: Education of diagnosis, Body/Joint mechanics, Home Exercise Program, Home Safety, Activity Modification, Education of Plan of Care Patient demonstrates compliance with HEP?: Yes Short Term Goals Goal #1: Patient independent in basic HEP. Goal to be met by: 01/26/17 Progress towards Goal:: Met Goal #2: Right knee flexion to 105 degrees. Goal to be met by: 01/26/17 Progress towards Goal:: Met Comments:: met at last session Goal #3: Full right knee extension. Goal to be met by: 01/26/17 Progress towards Goal:: Partially Met Goal #4: Right quad strength 4+/5. Goal to be met by: 01/26/17 Progress towards Goal:: Met Staff Attorney Goals Goal #1: Pt knows HEP and to cont. ex's to maintain functional level at D/C. Goal to be met by: 03/03/17 Progress towards goal: Met Goal #2: Score on LE functional scale improved to 60/80. Goal to be met by: 03/03/17 Progress towards goal: Progressing Goal #3: Pt able to amb. w/o assist. device community distances with min. gait dev. Goal to be met by: 03/03/17 Progress towards goal: Met Goal #4: Pt able to perform all selfcare and ADL's without difficulty. Goal to be met by: 03/03/17 Progress towards goal: Progressing Plan PLAN OF CARE EXPIRES ON:: 03/03/17 ORDER # VISITS AND/OR THROUGH DATE: 03/03/17 Comments:: HOLD--Patient has more sessions per order, but have not received approval for any visits yet per insurance. Patient was encouraged to continue HEP, ice, and come in next week for reassessment scale, and measurements.
--- NOTE | 2017-02-26 09:31 | RS.CXNS ---
Date of scheduled appointment: 02/26/17 Type: Cancel Reason for Cancel/NS: Patient had called to say she received an approval letter for 18 sessions and she wanted to continue with therapy until her dates . She scheduled for 3 more sessions, but cancelled them today. No reason expressed.
== END 2017-03-09 ==
PROVIDERS: ATTEND Orthopaedic Surgery
DX: Z96.651 Presence of right artificial knee joint (principal)

== ENCOUNTER 2018-01-30 12:44 | Outpatient (CLI) ==
[2016-05-03 09:12] VITALS: BMI 37.8
== END 2018-01-30 12:45 | disposition home or self-care (01) ==
LOC: LAB 12:44
PROVIDERS: ATTEND Physician Assistant
DX: E11.9 Type 2 diabetes mellitus without complications (principal)
CPT/HCPCS: 36415; 80053; 80061; 82043; 83036; 85025

== ENCOUNTER 2018-06-07 13:14 | Outpatient (CLI) ==
[2016-05-03 09:12] VITALS: BMI 37.8
== END 2018-06-07 13:15 | disposition home or self-care (01) ==
LOC: LAB 13:14
PROVIDERS: ATTEND Physician Assistant
DX: E11.9 Type 2 diabetes mellitus without complications (principal)
CPT/HCPCS: 36415; 80053; 83036; 85025

== ENCOUNTER 2019-02-13 13:55 | Outpatient (CLI) ==
[2018-08-01 09:51] VITALS: BMI 33.7
== END 2019-02-13 13:56 | disposition home or self-care (01) ==
LOC: LAB 13:55
PROVIDERS: ATTEND Nurse Practitioner Family
DX: R53.83 Other fatigue (principal); E78.00 Pure hypercholesterolemia, unspecified; E11.9 Type 2 diabetes mellitus without complications
CPT/HCPCS: 36415; 80053; 80061; 84439; 84443

== ENCOUNTER 2019-03-05 16:08 | Outpatient (CLI) ==
[2018-08-01 09:51] VITALS: BMI 33.7
== END 2019-03-05 16:09 | disposition home or self-care (01) ==
LOC: LAB 16:08
PROVIDERS: ATTEND Nurse Practitioner Family
DX: E11.9 Type 2 diabetes mellitus without complications (principal); R53.83 Other fatigue
CPT/HCPCS: 36415; 83036; 85025